=== PATIENT | female | born 1930 | race Asian ===

== ENCOUNTER 2017-11-21 11:48 | Inpatient (IN) | payer MEDICARE, OTHER ==
[2017-11-21 13:19] LABS: ADD MAN DIFF? NO
[2017-11-21 13:22] LABS: WHITE BLOOD COUNT 17.7 10^3/ul (4.8-10.8)
[2017-11-21 13:22] LABS: ABNORMAL IP MESSAGE 1; BASOPHIL # 0.1 10^3/ul (0.0-0.1); BASOPHILS % 0.4 % (0.0-2.0); EOSINOPHILS % 0.1 % (0.0-7.0); HEMATOCRIT 39.9 % (37.0-47.0); HEMOGLOBIN 13.1 g/dl (12.0-16.0); LYMPHOCYTES # 2.3 10^3/ul (0.8-2.9); LYMPHOCYTES % 13.2 % (15.0-51.0); MEAN CORPUSCULAR HEMOGLOBIN 30.1 pg (29.0-33.0); MEAN CORPUSCULAR HGB CONC 32.8 g/dl (32.0-37.0); MEAN CORPUSCULAR VOLUME 91.7 fl (82.0-101.0); MEAN PLATELET VOLUME 10.1 fl (7.4-10.4); MONOCYTE # 1.7 10^3/ul (0.3-0.9); MONOCYTES % 9.7 % (0.0-11.0); NEUTROPHIL # 13.5 10^3/ul (1.6-7.5); NEUTROPHILS % 76.1 % (39.0-77.0); PLATELET COUNT 224 10^3/UL (140-415); RED BLOOD COUNT 4.35 10^6/ul (4.20-5.40); RED CELL DISTRIBUTION WIDTH 13.6 % (11.5-14.5)
[2017-11-21] MEDS: ACETAMINOPHEN 325 MG TAB PO (13:25)
[2017-11-21 13:28] LABS: POSITIVE DIFF @See below
[2017-11-21 13:41] LABS: ALANINE AMINOTRANSFERASE 18 IU/L (13-69); ALBUMIN 4.1 g/dl (3.3-4.9); ALBUMIN/GLOBULIN RATIO 1.13; ALKALINE PHOSPHATASE 72 IU/L (42-121); ANION GAP 15 (8-16); ASPARTATE AMINO TRANSFERASE 20 IU/L (15-46); BILIRUBIN,INDIRECT 1.4 mg/dl (0-1.1); BILIRUBIN,TOTAL 1.4 mg/dl (0.2-1.3); BLOOD UREA NITROGEN 16 mg/dl (7-20); CALCIUM 8.9 mg/dl (8.4-10.2); CARBON DIOXIDE 27 mmol/L (21-31); CHLORIDE 104 mmol/L (97-110); GLUCOSE 114 mg/dl (70-220); POTASSIUM 3.9 mmol/L (3.5-5.1); SODIUM 142 mmol/L (135-144); TOTAL PROTEIN 7.7 g/dl (6.1-8.1)
[2017-11-21 13:41] LABS: LACTIC ACID 1.7 mmol/L (0.5-2.0)
[2017-11-21 13:51] LABS: INR 1.05; PROTIME 13.8 Sec (11.9-14.9); PT RATIO 1.1
[2017-11-21 13:56] LABS: TROPONIN-I < 0.012 ng/ml (0.000-0.120)
[2017-11-21 14:30] LABS: URINE BLOOD (Dip) POC 3+ (NEGATIVE); URINE GLUCOSE (Dip) POC Negative (NEGATIVE); URINE KETONES (Dip) POC Trace (NEGATIVE); URINE LEUKOCYTE EST (Dip) POC Trace (NEGATIVE); URINE NITRITE (Dip) POC Negative (NEGATIVE); URINE TOTAL PROTEIN POC 3+ (NEGATIVE)
[2017-11-21 14:30] LABS: URINE PH (Dip) POC 5.5 (5.0-8.5)
[2017-11-21 15:04] LABS: ADD UMIC YES; UR ASCORBIC ACID 40 mg/dL (NEGATIVE); UR BILIRUBIN (Dip) NEGATIVE (NEGATIVE); UR BLOOD (Dip) 2+ mg/dL (NEGATIVE); UR CLARITY CLEAR (CLEAR); UR COLOR AMBER (YELLOW); UR GLUCOSE (Dip) NEGATIVE (NEGATIVE); UR KETONES (Dip) NEGATIVE (NEGATIVE); UR LEUKOCYTE ESTERASE (Dip) TRACE Leu/ul (NEGATIVE); UR MUCUS FEW /HPF (NONE SEEN); UR NITRITE (Dip) NEGATIVE (NEGATIVE); UR RBC 8 /HPF (0-5); UR SPECIFIC GRAVITY (Dip) 1.024 (1.003-1.030); UR TOTAL PROTEIN (Dip) 3+ mg/dl (NEGATIVE); UR UROBILINOGEN (Dip) NEGATIVE (NEGATIVE); UR WBC 5 /HPF (0-5)
[2017-11-21 15:29] LABS: B-TYPE NATRIURETIC PEPTIDE 2930 PG/ML (0-450)
[2017-11-21] MEDS: PIPER-TAZO 3.375 GM IV (PMX) 100 ML IVPB (16:13)
[2017-11-21] MEDS ORDERED: MAGNESIUM HYDROXIDE 30ML CUP PO (16:30)
[2017-11-21] MEDS ORDERED: ONDANSETRON 4 MG INJ IV (16:30)
[2017-11-21] MEDS ORDERED: HYDROCODONE/APAP (5/325) TAB PO ×2 (16:30)
[2017-11-21] MEDS ORDERED: morphine 2 MG INJ IV (16:30)
[2017-11-21] MEDS ORDERED: DOCUSATE SODIUM 100 MG CAP PO (16:30)
[2017-11-21] MEDS ORDERED: BISACODYL 10 MG SUPP PR (16:30)
[2017-11-21] MEDS ORDERED: NACL 0.9% 3 ML SYG IV (16:30)
[2017-11-21] MEDS ORDERED: VANCOMYCIN IV PER PHARMACY XX (16:30)
[2017-11-21] MEDS ORDERED: ACETAMINOPHEN 325 MG TAB PO (16:30)
[2017-11-21 17:40] LABS: LACTIC ACID 1.2 mmol/L (0.5-2.0)
[2017-11-21] MEDS: LEVOFLOXACIN 750MG/D5W (PMX) 150 ML IVPB (17:45)
[2017-11-21] MEDS: CREON (24K-76K-120K) 1 CAP PO (18:00)
[2017-11-21] MEDS ORDERED: BEPOTASTINE BESILATE OP (21:00)
[2017-11-21] MEDS: VANCOMYCIN 1.75 GM in SOD CHLORIDE 0.9% 500 ML IVPB (21:06)
[2017-11-21] MEDS: ATORVASTATIN 10 MG TAB PO (21:32)
[2017-11-21] MEDS: APIXABAN 5 MG TABLET PO (21:32)
[2017-11-21] MEDS: TAMSULOSIN (SR) 0.4 MG CAP PO (21:32)
[2017-11-21] MEDS: CEFEPIME 1GM/50 ML (PMX) 50 ML IVPB (23:19)
[2017-11-22] MEDS: PANTOPRAZOLE 40 MG INJ IV (05:24)
[2017-11-22] MEDS ORDERED: NON-FORMULARY/PATIENT OWN MED (Esomeprazole Mag Trihydrate (Nexium) 40 MG) PO (07:00)
[2017-11-22 07:41] LABS: ADD MAN DIFF? NO
[2017-11-22 07:48] LABS: WHITE BLOOD COUNT 13.6 10^3/ul (4.8-10.8)
[2017-11-22 07:48] LABS: BASOPHIL # 0.1 10^3/ul (0.0-0.1); BASOPHILS % 0.4 % (0.0-2.0); EOSINOPHILS % 0.2 % (0.0-7.0); HEMATOCRIT 38.2 % (37.0-47.0); HEMOGLOBIN 12.3 g/dl (12.0-16.0); LYMPHOCYTES # 1.5 10^3/ul (0.8-2.9); LYMPHOCYTES % 10.9 % (15.0-51.0); MEAN CORPUSCULAR HEMOGLOBIN 29.8 pg (29.0-33.0); MEAN CORPUSCULAR HGB CONC 32.2 g/dl (32.0-37.0); MEAN CORPUSCULAR VOLUME 92.5 fl (82.0-101.0); MEAN PLATELET VOLUME 10.8 fl (7.4-10.4); MONOCYTE # 1.2 10^3/ul (0.3-0.9); MONOCYTES % 8.9 % (0.0-11.0); NEUTROPHIL # 10.8 10^3/ul (1.6-7.5); NEUTROPHILS % 79.1 % (39.0-77.0); PLATELET COUNT 185 10^3/UL (140-415); RED BLOOD COUNT 4.13 10^6/ul (4.20-5.40); RED CELL DISTRIBUTION WIDTH 13.6 % (11.5-14.5)
[2017-11-22] MEDS: CREON (24K-76K-120K) 1 CAP PO ×3 (08:00→18:05)
[2017-11-22 08:12] LABS: ALANINE AMINOTRANSFERASE 17 IU/L (13-69); ALBUMIN 3.5 g/dl (3.3-4.9); ALBUMIN/GLOBULIN RATIO 1.09; ALKALINE PHOSPHATASE 63 IU/L (42-121); ANION GAP 11 (8-16); ASPARTATE AMINO TRANSFERASE 18 IU/L (15-46); BILIRUBIN,INDIRECT 1.4 mg/dl (0-1.1); BILIRUBIN,TOTAL 1.4 mg/dl (0.2-1.3); BLOOD UREA NITROGEN 14 mg/dl (7-20); CALCIUM 8.4 mg/dl (8.4-10.2); CARBON DIOXIDE 30 mmol/L (21-31); CHLORIDE 106 mmol/L (97-110); CHOL/HDL RATIO 2.8 RATIO; CHOLESTEROL 135 mg/dl (100-200); CREATININE 0.62 mg/dl (0.44-1.00); GLUCOSE 101 mg/dl (70-220); HDL CHOLESTEROL 47 mg/dl (33-92); LDL CHOLESTEROL,CALCULATED 74 mg/dl; MAGNESIUM 2.3 mg/dl (1.7-2.5); PHOSPHORUS 3.2 mg/dl (2.5-4.9); POTASSIUM 3.8 mmol/L (3.5-5.1); SODIUM 143 mmol/L (135-144); TOTAL PROTEIN 6.7 g/dl (6.1-8.1); TRIGLYCERIDES 68 mg/dl (0-149)
[2017-11-22 08:23] LABS: FREE THYROXINE INDEX (Calc) 2.88 ug/ml (0.65-3.89)
[2017-11-22 08:54] LABS: HEMOGLOBIN A1C 5.9 % (0-5.9)
[2017-11-22] MEDS: AL HYDROX/MG HYDROX/SIMETH 30 ML CUP PO ×3 (09:00→20:24)
[2017-11-22] MEDS ORDERED: [UNRECOGNIZED DRUG - REMARK] XX (09:00)
[2017-11-22] MEDS ORDERED: ALCAFTADINE OP (09:00)
[2017-11-22] MEDS ORDERED: OLOPATADINE HCL OP (09:00)
[2017-11-22] MEDS: APIXABAN 5 MG TABLET PO ×2 (11:23→20:24)
[2017-11-22] MEDS: DONEPEZIL 5 MG TAB PO (11:23)
[2017-11-22] MEDS: LOSARTAN 50 MG TAB PO (11:24)
[2017-11-22] MEDS: ISOSORBIDE MONONITRATE(SR)30 MG TAB PO (11:24)
[2017-11-22] MEDS: ALLOPURINOL 300 MG TAB PO (11:32)
[2017-11-22] MEDS: CHOLECALCIFEROL 1,000 UNIT TAB PO (11:32)
[2017-11-22] MEDS: COLCHICINE 0.6 MG TAB PO (11:32)
[2017-11-22] MEDS: AMLODIPINE 5 MG TAB PO (11:33)
[2017-11-22] MEDS: FUROSEMIDE 40 MG INJ IV (13:41)
[2017-11-22] MEDS: ALBUTEROL/IPRATROPIUM (NEB) 3 ML AMP HHN ×2 (16:26→20:30)
[2017-11-22] MEDS: ATORVASTATIN 10 MG TAB PO (20:24)
[2017-11-22] MEDS: TAMSULOSIN (SR) 0.4 MG CAP PO (20:24)
[2017-11-22] MEDS: GUAIFENESIN LA 600 MG TABSR PO (20:24)
[2017-11-22] MEDS: CEFEPIME 1GM/50 ML (PMX) 50 ML IVPB (20:25)
[2017-11-22] MEDS: VANCOMYCIN 750 MG in DEXTROSE 5% 150 ML IVPB (21:29)
[2017-11-23] MEDS: PANTOPRAZOLE 40 MG INJ IV (05:35)
[2017-11-23] MEDS: CREON (24K-76K-120K) 1 CAP PO ×3 (08:57→17:29)
[2017-11-23] MEDS: CHOLECALCIFEROL 1,000 UNIT TAB PO (08:59)
[2017-11-23] MEDS: COLCHICINE 0.6 MG TAB PO (08:59)
[2017-11-23] MEDS: ALBUTEROL/IPRATROPIUM (NEB) 3 ML AMP HHN ×4 (09:00→20:30)
[2017-11-23] MEDS: DONEPEZIL 5 MG TAB PO (09:05)
[2017-11-23] MEDS: GUAIFENESIN LA 600 MG TABSR PO ×2 (09:06→21:16)
[2017-11-23] MEDS: ALLOPURINOL 300 MG TAB PO (09:06)
[2017-11-23] MEDS: ISOSORBIDE MONONITRATE(SR)30 MG TAB PO (09:07)
[2017-11-23] MEDS: AMLODIPINE 5 MG TAB PO (09:07)
[2017-11-23] MEDS: AL HYDROX/MG HYDROX/SIMETH 30 ML CUP PO ×3 (09:07→21:00)
[2017-11-23] MEDS: LOSARTAN 50 MG TAB PO (09:08)
[2017-11-23] MEDS: APIXABAN 5 MG TABLET PO ×2 (09:09→21:16)
[2017-11-23] MEDS: FUROSEMIDE 40 MG INJ IV (09:09)
[2017-11-23] MEDS: BUDESONIDE (NEB) 0.25 MG/2 ML AMP HHN ×2 (11:57→20:42)
[2017-11-23] MEDS: LEVOFLOXACIN 500 MG TAB PO (17:29)
[2017-11-23] MEDS: TAMSULOSIN (SR) 0.4 MG CAP PO (21:16)
[2017-11-23] MEDS: ATORVASTATIN 10 MG TAB PO (21:16)
[2017-11-23] MEDS: ZOLPIDEM 5 MG TAB PO (21:16)
[2017-11-23] MEDS ORDERED: morphine LIQ (10 MG/5 ML) CUP PO (21:30)
[2017-11-24] MEDS: ALBUTEROL/IPRATROPIUM (NEB) 3 ML AMP HHN ×8 (04:07→21:22)
[2017-11-24] MEDS: PANTOPRAZOLE 40 MG INJ IV (05:45)
[2017-11-24] MEDS: LEVOFLOXACIN 250 MG TAB PO (05:45)
[2017-11-24 08:27] LABS: ADD MAN DIFF? NO
[2017-11-24 08:30] LABS: BASOPHIL # 0.1 10^3/ul (0.0-0.1); BASOPHILS % 0.7 % (0.0-2.0); EOSINOPHILS # 0.1 10^3/ul (0.0-0.5); EOSINOPHILS % 2.1 % (0.0-7.0); HEMATOCRIT 39.6 % (37.0-47.0); HEMOGLOBIN 12.7 g/dl (12.0-16.0); LYMPHOCYTES # 1.6 10^3/ul (0.8-2.9); LYMPHOCYTES % 23.6 % (15.0-51.0); MEAN CORPUSCULAR HEMOGLOBIN 29.5 pg (29.0-33.0); MEAN CORPUSCULAR HGB CONC 32.1 g/dl (32.0-37.0); MEAN CORPUSCULAR VOLUME 91.9 fl (82.0-101.0); MEAN PLATELET VOLUME 9.9 fl (7.4-10.4); MONOCYTE # 0.9 10^3/ul (0.3-0.9); MONOCYTES % 12.8 % (0.0-11.0); NEUTROPHIL # 4.1 10^3/ul (1.6-7.5); NEUTROPHILS % 60.5 % (39.0-77.0); PLATELET COUNT 238 10^3/UL (140-415); RED BLOOD COUNT 4.31 10^6/ul (4.20-5.40); RED CELL DISTRIBUTION WIDTH 13.3 % (11.5-14.5)
[2017-11-24 08:30] LABS: WHITE BLOOD COUNT 6.8 10^3/ul (4.8-10.8)
[2017-11-24 08:49] LABS: ALANINE AMINOTRANSFERASE 22 IU/L (13-69); ALBUMIN 3.7 g/dl (3.3-4.9); ALBUMIN/GLOBULIN RATIO 1.05; ALKALINE PHOSPHATASE 70 IU/L (42-121); ANION GAP 15 (8-16); ASPARTATE AMINO TRANSFERASE 21 IU/L (15-46); BILIRUBIN,INDIRECT 0.7 mg/dl (0-1.1); BILIRUBIN,TOTAL 0.7 mg/dl (0.2-1.3); BLOOD UREA NITROGEN 12 mg/dl (7-20); CALCIUM 8.7 mg/dl (8.4-10.2); CARBON DIOXIDE 32 mmol/L (21-31); CHLORIDE 101 mmol/L (97-110); CREATININE 0.62 mg/dl (0.44-1.00); GLUCOSE 117 mg/dl (70-220); POTASSIUM 3.5 mmol/L (3.5-5.1); SODIUM 144 mmol/L (135-144); TOTAL PROTEIN 7.2 g/dl (6.1-8.1)
[2017-11-24] MEDS: BUDESONIDE (NEB) 0.25 MG/2 ML AMP HHN ×3 (09:00→21:22)
[2017-11-24] MEDS: COLCHICINE 0.6 MG TAB PO (09:49)
[2017-11-24] MEDS: GUAIFENESIN LA 600 MG TABSR PO ×2 (09:49→20:30)
[2017-11-24] MEDS: CREON (24K-76K-120K) 1 CAP PO ×3 (09:49→17:51)
[2017-11-24] MEDS: AL HYDROX/MG HYDROX/SIMETH 30 ML CUP PO ×3 (09:49→20:27)
[2017-11-24] MEDS: DONEPEZIL 5 MG TAB PO (09:49)
[2017-11-24] MEDS: ISOSORBIDE MONONITRATE(SR)30 MG TAB PO (09:49)
[2017-11-24] MEDS: ALLOPURINOL 300 MG TAB PO (09:50)
[2017-11-24] MEDS: APIXABAN 5 MG TABLET PO ×2 (09:50→20:28)
[2017-11-24] MEDS: AMLODIPINE 5 MG TAB PO (09:50)
[2017-11-24] MEDS: FUROSEMIDE 40 MG INJ IV (09:50)
[2017-11-24] MEDS: CHOLECALCIFEROL 1,000 UNIT TAB PO (09:50)
[2017-11-24] MEDS: LOSARTAN 50 MG TAB PO (09:51)
[2017-11-24] MEDS: METOPROLOL 25 MG TAB PO ×2 (14:51→20:30)
[2017-11-24] MEDS: ATORVASTATIN 10 MG TAB PO (20:27)
[2017-11-24] MEDS: TAMSULOSIN (SR) 0.4 MG CAP PO (20:27)
[2017-11-24] MEDS: ZOLPIDEM 5 MG TAB PO (21:33)
[2017-11-25] MEDS: PANTOPRAZOLE 40 MG INJ IV (05:56)
[2017-11-25] MEDS: LEVOFLOXACIN 250 MG TAB PO (05:56)
[2017-11-25 07:26] LABS: ADD MAN DIFF? NO
[2017-11-25 07:28] LABS: WHITE BLOOD COUNT 6.8 10^3/ul (4.8-10.8)
[2017-11-25 07:28] LABS: BASOPHIL # 0.1 10^3/ul (0.0-0.1); BASOPHILS % 0.9 % (0.0-2.0); EOSINOPHILS # 0.3 10^3/ul (0.0-0.5); HEMATOCRIT 39.3 % (37.0-47.0); HEMOGLOBIN 12.9 g/dl (12.0-16.0); LYMPHOCYTES % 29.8 % (15.0-51.0); MEAN CORPUSCULAR HGB CONC 32.8 g/dl (32.0-37.0); MEAN CORPUSCULAR VOLUME 91.4 fl (82.0-101.0); MEAN PLATELET VOLUME 10.1 fl (7.4-10.4); MONOCYTE # 0.9 10^3/ul (0.3-0.9); MONOCYTES % 12.8 % (0.0-11.0); NEUTROPHIL # 3.6 10^3/ul (1.6-7.5); NEUTROPHILS % 52.2 % (39.0-77.0); PLATELET COUNT 250 10^3/UL (140-415); RED CELL DISTRIBUTION WIDTH 13.4 % (11.5-14.5)
[2017-11-25 07:56] LABS: ANION GAP 12 (8-16); BLOOD UREA NITROGEN 12 mg/dl (7-20); CALCIUM 8.6 mg/dl (8.4-10.2); CARBON DIOXIDE 35 mmol/L (21-31); CHLORIDE 100 mmol/L (97-110); CREATININE 0.66 mg/dl (0.44-1.00); GLUCOSE 96 mg/dl (70-220); POTASSIUM 3.9 mmol/L (3.5-5.1); SODIUM 143 mmol/L (135-144)
[2017-11-25] MEDS: BUDESONIDE (NEB) 0.25 MG/2 ML AMP HHN (08:13)
[2017-11-25] MEDS: ALBUTEROL/IPRATROPIUM (NEB) 3 ML AMP HHN ×2 (08:13→12:15)
[2017-11-25] MEDS: CHOLECALCIFEROL 1,000 UNIT TAB PO (08:31)
[2017-11-25] MEDS: APIXABAN 5 MG TABLET PO (08:31)
[2017-11-25] MEDS: DONEPEZIL 5 MG TAB PO (08:31)
[2017-11-25] MEDS: ALLOPURINOL 300 MG TAB PO (08:31)
[2017-11-25] MEDS: GUAIFENESIN LA 600 MG TABSR PO (08:31)
[2017-11-25] MEDS: ISOSORBIDE MONONITRATE(SR)30 MG TAB PO (08:32)
[2017-11-25] MEDS: COLCHICINE 0.6 MG TAB PO (08:32)
[2017-11-25] MEDS: FUROSEMIDE 40 MG INJ IV (08:32)
[2017-11-25] MEDS: METOPROLOL 25 MG TAB PO (08:32)
[2017-11-25] MEDS: AL HYDROX/MG HYDROX/SIMETH 30 ML CUP PO ×3 (08:32→12:14)
[2017-11-25] MEDS: CREON (24K-76K-120K) 1 CAP PO ×2 (08:32→11:41)
[2017-11-28] MEDS ORDERED: ALENDRONATE 70 MG TAB PO (06:00)
== END 2017-11-25 16:50 | disposition home or self-care (01) | DRG 871 ==
LOC: E/R 11:48 → MS4 15:54
PROVIDERS: Internal Medicine
DX: A41.9 Sepsis, unspecified organism (principal); J18.9 Pneumonia, unspecified organism; N39.0 Urinary tract infection, site not specified; I50.30 Unspecified diastolic (congestive) heart failure; B96.20 Unspecified Escherichia coli [E. coli] as the cause of diseases classified elsewhere; E80.6 Other disorders of bilirubin metabolism; E78.5 Hyperlipidemia, unspecified; F03.90 Unspecified dementia, unspecified severity, without behavioral disturbance, psychotic disturbance, mood disturbance, and anxiety; I48.2 Chronic atrial fibrillation; I11.0 Hypertensive heart disease with heart failure; I27.20 Pulmonary hypertension, unspecified; I95.9 Hypotension, unspecified; M10.9 Gout, unspecified
CPT/HCPCS: 36415; 71045; 71250; 80048; 80053; 80061; 81001; 81003; 83036; 83605; 83735; 83880; 84100; 84436; 84443; 84479; 84484; 85025; 85610; 85730; 87040; 87070; 87086; 92526; 92610; 93005; 93306; 94640; 94664; 96374; 96375; 97116; 97162; 97530; 99285-25